=== PATIENT | male | born 1955 | race Caucasian/White ===

== ENCOUNTER → 2017-06-24 | Outpatient (CLI) | payer BC ==
[2017-06-24 12:30] LABS: BASO % 0.8 %; BASO ABS # 0.08 K/uL (0-0.2); HEMATOCRIT 45.3 % (42-52); HEMOGLOBIN 15.1 g/dL (14.0-18.0); IG# 0.03 K/uL (0.00-0.02); LYMPH % 27.1 %; LYMPH ABS # 2.67 K/uL (1.2-3.4); MEAN CELL VOLUME 93.4 fL (80-100); MEAN CORPUSCULAR HEMOGLOBIN 31.1 pg (25-34); MEAN CORPUSCULAR HGB CONC 33.3 g/dl (32-36); MEAN PLATELET VOLUME 10.1 fL (7.4-10.4); MONO % 11.4 %; MONO ABS # 1.12 K/uL (0.11-0.59); NEUT % 58.4 %; NEUT ABS # 5.76 K/uL (1.4-6.5); PLATELET COUNT 326 K/uL (130-400); RED CELL DISTRIBUTION WIDTH CV 13.4 % (11.5-14.5); RED CELL DISTRIBUTION WIDTH SD 46.2 fL (36.4-46.3); WHITE BLOOD COUNT 9.86 K/uL (4.8-10.8)
[2017-06-24 13:00] LABS: HEMOGLOBIN A1C 5.4 % (4.5-5.6)
[2017-06-24 13:25] LABS: ALBUMIN 3.7 gm/dl (3.4-5.0); ALT/SGPT 22 U/L (12-78); BLOOD UREA NITROGEN 10 mg/dl (7-18); CALCIUM 9.2 mg/dl (8.5-10.1); CARBON DIOXIDE 27 mmol/L (21-32); CHOLESTEROL 207 mg/dl (0-200); CREATININE 1.02 mg/dl (0.60-1.40); GLUCOSE 98 mg/dl (70-99); POTASSIUM 4.2 mmol/L (3.5-5.1); SODIUM 139 mmol/L (136-145)
[2017-06-24 13:27] LABS: ALKALINE PHOSPHATASE 85 U/L (45-117); AST/SGOT 15 U/L (15-37); LDL CHOLESTEROL CALCULATED 149 mg/dl
== END | disposition home or self-care (01) ==
LOC: C.LABPVFM 07:41
PROVIDERS: ATTEND Family Medicine
DX: F17.200 Nicotine dependence, unspecified, uncomplicated (principal); Z86.39 Personal history of other endocrine, nutritional and metabolic disease

== ENCOUNTER → 2017-12-12 | Outpatient (CLI) | payer BC ==
--- NOTE | 2017-12-12 10:28 | DIAGNOSTIC IMAGING REPORT ---
R FEMUR 2 VIEWS ROUTINE HISTORY: 62 years-old Male Leg pain, lateralRIGHT acute right femur pain COMPARISON: None available TECHNIQUE: 2 views of the right femur FINDINGS: Mild osteoarthritis about the right femoral acetabular joint. Degenerative changes are also noted about the knee. There is no acute fracture or dislocation identified. No suspicious bone lesions or avascular necrosis. Imaged right hemipelvis appears to be intact. Peripheral arterial calcifications are noted. IMPRESSION: No acute fracture or dislocation. The above report was generated using voice recognition software. It may contain grammatical, syntax or spelling errors. Electronically signed by: Sabino Magaña M.D. 12/12/2017 10:27 AM Dictated Date/Time: 12/12/2017 10:26 AM
== END | disposition home or self-care (01) ==
LOC: C.RADPV 10:05
PROVIDERS: ATTEND Family Medicine
DX: M79.604 Pain in right leg (principal)

== ENCOUNTER 2023-09-24 16:05 | Inpatient (IN) ==
[2023-09-24 16:37] LABS: Partial Thromboplastin Time 26 Seconds (21-31); Prothrombin Time 10.6 Seconds (9.0-12.0)
[2023-09-24 16:40] LABS: Basophils # (auto) 0.08 K/uL (0.00-0.20); Basophils % (auto) 0.7 %; Eosinophils # (auto) 0.13 K/uL (0.00-0.50); Eosinophils % (auto) 1.1 %; Hematocrit (blood only) 38.5 % (42.0-52.0); Hemoglobin 12.9 g/dl (14.0-18.0); Immature Granulocytes # (auto) 0.08 K/uL (0.01-0.20); Immature Granulocytes % (auto) 0.7 %; Lymphocytes # (auto) 2.57 K/uL (1.20-3.40); Lymphocytes % (auto) 22.2 %; Mean Corpuscular Hemoglobin 30.9 pg (25.0-34.0); Mean Corpuscular Hgb Conc 33.5 g/dL (32.0-36.0); Mean Corpuscular Volume 92.1 fL (80.0-100.0); Mean Platelet Volume 9.7 fL (9.4-12.4); Monocytes # (auto) 0.98 K/uL (0.11-0.59); Monocytes % (auto) 8.5 %; Neutrophils # (auto) 7.74 K/uL (1.40-6.50); Neutrophils % (auto) 66.8 %; Platelet Count 379 K/uL (130-400); RDW Coefficient of Variation 12.8 % (11.5-14.5); Red Blood Count 4.18 M/uL (4.70-6.10); White Blood Count 11.58 K/ul (4.8-10.8)
[2023-09-24 16:47] LABS: Albumin Globulin Ratio 1.4 (0.9-2); Bilirubin,Total 0.4 mg/dl (0.2-1.0); Calcium 9.5 mg/dl (8.6-10.3); Creatinine Clr Calc Pharmacy 87.3 ml/min; Est GFR (African American) 81.5 ml/min; Est GFR (Non-African American) 70.4 ml/min; Globulin 2.9 gm/dl (2.5-4.0); Potassium 3.4 mmol/L (3.5-5.1); Total Protein 6.9 gm/dl (6.0-8.3)
--- NOTE | 2023-09-24 16:58 | XRay Report ---
SINGLE VIEW CHEST CLINICAL HISTORY: Atypical chest pain. FINDINGS: An AP upright chest radiograph is compared to study dated 11/22/2018 and correlated with [facility] t [facility] dated 02/07/2019. The heart is enlarged. The pulmonary vasculature is noncongested. Emphysema and chronic interstitial thickening is similar to previous. There is bibasilar scarring/atelectasis. No airspace consolidation or large pleural effusion is identified. No pneumothorax is seen. The skeletal structures are osteopenic. The bony thorax is grossly intact. A benign-appearing chondroid lesion is seen in the left humeral head. IMPRESSION: Cardiomegaly and emphysema with no acute cardiopulmonary abnormality identified. ACT 112: Negative or not required by law. Electronically signed by: German Mooney M.D. 09/24/2023 4:56 PM
[2023-09-24 17:15] LABS: Troponin I High Sensitivity 3538.7 pg/ml (0-20)
[2023-09-24 17:17] LABS: D Dimer 1080 ug/L FEU (0-500)
[2023-09-24] MEDS: ONDANSETRON INJ 2 MG/ML 2 ML VIAL IV STA (17:39)
[2023-09-24] MEDS: HYDROmorphone INJ 0.5 MG/0.5 ML SYR IV PRN (17:39)
[2023-09-24] MEDS: OPTIRAY 320 125ml IV ONE (17:59)
--- NOTE | 2023-09-24 18:38 | CT Scan Report ---
CT ANGIOGRAM OF THE CHEST CLINICAL HISTORY: Atypical chest pain. Elevated d-dimer. Elevated troponin. COMPARISON STUDY: Chest x-ray dated 09/24/2023. Chest CT dated 02/07/2019. TECHNIQUE: Following the IV administration of 120 cc of Optiray 320, CT angiogram of the chest was pe rformed from the upper abdomen to the thoracic inlet utilizing the pulmonary embolus protocol. Images are reviewed in the axial, sagittal, and coronal planes. 3-D MIPS images are created and assessed. I V contrast was administered without complication. A dose lowering technique was utilized adhering to the principles of ALARA. CT DOSE: 880.15 mGy.cm FINDINGS: Thyroid: Imaged portions of the thyroid gland are normal in size and attenuation. Thoracic aorta: There is atherosclerotic calcification of the thoracic aorta, which is normal in see adam and demonstrates standard 3-vessel arch anatomy. No dissection is seen. There is moderate focal s tenosis of the left subclavian artery below the thoracic outlet seen on axial image #203. Pulmonary vasculature: The pulmonary trunk is normal in caliber. There are no filling defects identif ied in main, lobar, or segmental pulmonary branches to suggest pulmonary embolus. Heart: The heart is enlarged and without pericardial effusion. The coronary arteries are densely calc ified. Lungs and pleural spaces: Evaluation of the lung parenchyma is degraded by motion artifact. There is mild emphysematous change. There is no airspace consolidation or pleural effusion. There is dependent scarring/atelectasis. Scattered calcified granulomas are incidentally noted. Mediastinum: Subcentimeter mediastinal lymph nodes are not pathologically enlarged by size criteria. Mary Kate: Clear. Axillae: There is no axillary lymphadenopathy. Upper abdomen: Partially visualized upper abdominal viscera is within normal limits. Skeletal structures: No lytic or blastic bony lesions are seen. IMPRESSION: 1. There is no evidence of pulmonary embolus in the main, lobar, or segmental pulmonary arteries. 2. There is no airspace consolidation or pleural effusion. 3. Cardiomegaly and mild emphysema. 4. Advanced coronary artery atherosclerosis. 5. Additional findings as above. ACT 112: Negative or not required by law. Electronically signed by: German Mooney M.D. 09/24/2023 6:36 PM
[2023-09-24] MEDS: ASPIRIN CHEW 324 MG PO STA (18:55)
[2023-09-24] MEDS ORDERED: Heparin IV Adult Wt-Based Low-Dose w/ INITIAL Bolus Protocol IV STA (19:21)
[2023-09-24] MEDS: NITROGLYCERIN 2% OINTMENT 30GM TUBE EXT STA (19:36)
[2023-09-24] MEDS ORDERED: HEPARIN SOD (PORCINE) 1000 UNIT/ML IV ONE (19:37)
[2023-09-24] MEDS: HEPARIN SOD (PORCINE) 1000 UNIT/ML IV ONE (20:00)
[2023-09-24] MEDS: HEPARIN SODIUM/DEXTROSE 25,000 UNITS/500 ML BAG IV SCH (20:01)
--- NOTE | 2023-09-24 20:08 | History & Physical Report ---
Date of Service September 24, 2023 Assessment & Plan (1) Non-ST elevated myocardial infarction (non-STEMI): (2) Current smoker: (3) Hyperlipidemia: (4) Hypertension: Plan NSTEMI/hypertension- The patient will be admitted to telemetry for serial cardiac enzymes, serial EKG's, cardiac rhythm monitoring and a 2-D echocardiogram with Dopplers. D-dimer 1080 Troponin 3538.7, with follow-up 3108.0 Given aspirin 324 mg, and will continue 81 mg every morning Continue heparin drip with bolus begun in the ED per protocol Continue Nitropaste 1/2 inch to anterior chest wall every 6 hours Metoprolol succinate, changed from 25 mg every evening to 12.5 mg p.o. twice daily, with first dose tonight. Blood pressure is currently 112/74 with pulse of 75 Holding HCTZ and lisinopril for now, which were both already taken early in the morning today Consult cardiology Hyperlipidemia- Placed on high-dose atorvastatin 40 mg, first dose now Check a fasting lipid panel Hyperglycemia Glucose 147 on admission Check hemoglobin A1c Hypokalemia Normal saline plus KCl 20 mEq at 80 mL/h x 1 L Repeat laboratories in a.m. Tobacco use disorder- Reports he stopped smoking tobacco year ago, but continues to vape Advised vaping cessation as well History of Present Illness Chief Complaint: The patient presents to the emergency department with complaint of recurrence of precordial chest pain and shortness of breath after moving a heater Primary Care Provider: Phoebe Ramos MD The patient is a 68-year-old male with past medical history including previous tobacco use, current vaping, hyperlipidemia, hypertension, AAA and lumbar degenerative disc disease. He reports that he was playing golf in [place] 5 days ago, and initially developed chest discomfort precordially, that persisted into that evening, and then did not recur again until earlier today, when he was moving a heavy heater. In the emergency department symptoms have resolved after receiving aspirin and Nitropaste. He is being started on heparin drip after conversation with cardiology, and is being referred for admission to the hospitalist service. Allergies Allergy/AdvReac Type Severity Reaction Status Date / Time Penicillins Allergy Mild Hives Verified 09/14/23 08:17 Home Medications Medication Instructions Recorded Confirmed Type sildenafil 50 mg tablet See Rx Instructions PO DAILY PRN 04/19/23 05/04/24 Rx sexual activity #30 tabs hydrochlorothiazide 25 mg tablet 25 mg PO QAM #90 tabs 04/27/23 09/24/23 Rx lisinopril 40 mg tablet 40 mg PO QPM #30 tabs 08/24/23 09/24/23 Rx metoprolol succinate 25 mg 25 mg PO QPM 09/24/23 09/24/23 History tablet,extended release 24 hr Past Med/Surg History Medical History Melanoma in situ of back Hyperlipidemia Hypertension Surgical History Hx of tonsillectomy Family History Uncle Colorectal cancer Father Hypertension Denies family history of Ovarian cancer Prostate cancer Diabetes Myocardial infarction Breast cancer Social History (Updated 09/14/23 @ 08:21 by Jessica Murry LPN) Smoking Status: Former smoker Tobacco Type: Smokeless Tobacco (Dip or Chew) Age Started Using Tobacco: 17; Age Quit Using Tobacco: 66; Second Hand Exposure: No; Do You Dip or Chew Tobacco: Yes; Hx Alcohol Use: No Hx Substance Use: No Preferred Language: Beninese Communication Ability: Effective Hearing Ability: Hard of Hearing Hogshead Packer Required: No marital status: Current Living Situation: Spouse 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 How many Children do You have: 3 Feels Safe at Home: Yes Childhood Exposure to Second-Hand Smoke: No Diet: regular caffeine: Yes (coffee) Dental Care, Regularly: Yes Physical Activity Frequency: Daily Seatbelt Use: never Sunscreen Use: No Review of Systems Review of Systems: The patient denies palpitations, cough, lower extremity swelling, sore throat, fevers, chills, sweats, weight change, fatigue, nausea, vomiting, diarrhea , constipation, abdominal pain, pelvic pain, blood in urine or stool, dysuria, urinary frequency or urgency, lightheadedness, dizziness, headache, memory loss, loss of consciousness, rash, abnormal bruising or bleeding, imbalance, focal or generalized weakness, numbness or tingling in arms or legs, generalized arthralgias or myalgias, back or neck pain, or night sweats. The review of systems is otherwise negative other than for that already noted above, and at least 10 systems have been reviewed. Physical Exam Physical Exam: The patient is awake, alert and oriented 3, well developed and well nourished, normocephalic and atraumatic, lying in bed and in no acute distress. HEENT--PERRL, EOMI, mucous membranes and oropharynx normal Neck--supple. No JVD. No bruits. Thyroid normal, trachea midline, no adenopathy. Heart--normal S1 and S2. No murmurs, rubs or gallops. Lungs--clear bilaterally, no respiratory distress, no accessory muscle use. Abdomen--normal bowel sounds and soft. Nontender. Nondistended, no hernias or masses, no organomegaly. Extremities-- No edema. Dermatologic--normal skin turgor, normal color, no abnormal lymph nodes, no rash. Neurologic--cranial nerves II through XII grossly intact. Rheumatologic--normal range of motion. Psychiatric--normal affect. Results & Data Results & Data Vital Signs (Past 12 Hours) Vital Signs Temp Pulse Resp BP Pulse Ox O2 Del Method 09/24/23 19:30 71 18 112/74 96 Room Air 09/24/23 19:00 75 18 118/70 95 09/24/23 17:30 72 18 131/83 99 09/24/23 17:05 72 09/24/23 17:00 72 19 131/83 98 09/24/23 16:07 36.8 C 73 24 145/91 H 97 Room Air Laboratory Results Laboratory Results WBC 11.58 K/ul (4.8-10.8) H 09/24/23 16:11 RBC 4.18 M/uL (4.70-6.10) L 09/24/23 16:11 Hgb 12.9 g/dl (14.0-18.0) L 09/24/23 16:11 Hct 38.5 % (42.0-52.0) L 09/24/23 16:11 MCV 92.1 fL (80.0-100.0) 09/24/23 16:11 MCH 30.9 pg (25.0-34.0) 09/24/23 16:11 MCHC 33.5 g/dL (32.0-36.0) 09/24/23 16:11 RDW Std Deviation 43.0 fL (36.4-46.3) 09/24/23 16:11 RDW Coeff of Genesis 12.8 % (11.5-14.5) 09/24/23 16:11 Plt Count 379 K/uL (130-400) 09/24/23 16:11 MPV 9.7 fL (9.4-12.4) 09/24/23 16:11 Immature Gran % (Auto) 0.7 % 09/24/23 16:11 Neut % (Auto) 66.8 % 09/24/23 16:11 Lymph % (Auto) 22.2 % 09/24/23 16:11 Lasalle % (Auto) 8.5 % 09/24/23 16:11 Eos % (Auto) 1.1 % 09/24/23 16:11 Baso % (Auto) 0.7 % 09/24/23 16:11 Neut # (Auto) 7.74 K/uL (1.40-6.50) H 09/24/23 16:11 Lymph # (Auto) 2.57 K/uL (1.20-3.40) 09/24/23 16:11 Lasalle # (Auto) 0.98 K/uL (0.11-0.59) H 09/24/23 16:11 Eos # (Auto) 0.13 K/uL (0.00-0.50) 09/24/23 16:11 Baso # (Auto) 0.08 K/uL (0.00-0.20) 09/24/23 16:11 Immature Gran # (Auto) 0.08 K/uL (0.01-0.20) 09/24/23 16:11 PT 10.6 Seconds (9.0-12.0) 09/24/23 16:11 INR 1.0 (0.9-1.1) 09/24/23 16:11 APTT 26 Seconds (21-31) 09/24/23 16:11 PTT Ratio 1.0 09/24/23 16:11 D-Dimer 1080 ug/L FEU (0-500) H* 09/24/23 16:11 Sodium 136 mmol/L (136-145) 09/24/23 16:11 Potassium 3.4 mmol/L (3.5-5.1) L 09/24/23 16:11 Chloride 100 mmol/L (98-107) 09/24/23 16:11 Carbon Dioxide 25 mmol/L (21-32) 09/24/23 16:11 Anion Gap 11 (3-11) 09/24/23 16:11 BUN 12 mg/dl (6-23) 09/24/23 16:11 Creatinine 1.09 mg/dl (0.6-1.4) 09/24/23 16:11 Est Cr Clr Drug Dosing 87.3 ml/min 09/24/23 16:11 Est GFR ( Amer) 81.5 ml/min 09/24/23 16:11 Est GFR (Non-Af Amer) 70.4 ml/min 09/24/23 16:11 BUN/Creatinine Ratio 11.0 (10-20) 09/24/23 16:11 Glucose 147 mg/dl (70-99(Fasting)) H 09/24/23 16:11 Calcium 9.5 mg/dl (8.6-10.3) 09/24/23 16:11 Total Bilirubin 0.4 mg/dl (0.2-1.0) 09/24/23 16:11 AST 24 U/L (13-39) 09/24/23 16:11 ALT 25 U/L (7-52) 09/24/23 16:11 Alkaline Phosphatase 81 U/L (34-104) 09/24/23 16:11 Troponin I High Sens 3108.0 pg/ml (0-20) H* 09/24/23 18:05 Total Protein 6.9 gm/dl (6.0-8.3) 09/24/23 16:11 Albumin 4.0 gm/dl (3.4-5.0) 09/24/23 16:11 Globulin 2.9 gm/dl (2.5-4.0) 09/24/23 16:11 Albumin/Globulin Ratio 1.4 (0.9-2) 09/24/23 16:11 Impressions Chest X-Ray 09/24/23 16:10 SINGLE VIEW CHEST CLINICAL HISTORY: Atypical chest pain. FINDINGS: An AP upright chest radiograph is compared to study dated 11/22/2018 and correlated with chest CT dated 02/07/2019. The heart is enlarged. The pulmonary vasculature is noncongested. Emphysema and chronic interstitial thickening is similar to previous. There is bibasilar scarring/atelectasis. No airspace consolidation or large pleural effusion is identified. No pneumothorax is seen. The skeletal structures are osteopenic. The bony thorax is grossly intact. A b enign-appearing chondroid lesion is seen in the left humeral head. IMPRESSION: Cardiomegaly and emphysema with no acute cardiopulmonary abnormality identified. ACT 112: Negative or not required by law. Electronically signed by: German Mooney M.D. 09/24/2023 4:56 PM Chest CTA 09/24/23 17:31 CT ANGIOGRAM OF THE CHEST CLINICAL HISTORY: Atypical chest pain. Elevated d-dimer. Elevated troponin. COMPARISON STUDY: Chest x-ray dated 09/24/2023. Chest CT dated 02/07/2019. TECHNIQUE: Following the IV administration of 120 cc of Optiray 320, CT angiogram of the chest was performed from the upper abdomen to the thoracic inlet utilizing the pulmonary embolus protocol. Images are reviewed in the axial, sagittal, and coronal planes. 3-D MIPS images are created and assessed. IV contrast was administered without complication. A dose lowering technique was utilized adhering to the principles of ALARA. CT DOSE: 880.15 mGy.cm FINDINGS: Thyroid: Imaged portions of the thyroid gland are normal in size and attenuation. Thoracic aorta: There is atherosclerotic calcification of the thoracic aorta, which is normal in caliber and demonstrates standard 3-vessel arch anatomy. No dissection is seen. There is moderate focal stenosis of the left subclavian artery below the thoracic outlet seen on axial image #203. Pulmonary vasculature: The pulmonary trunk is normal in caliber. There are no filling defects identified in main, lobar, or segmental pulmonary branches to suggest pulmonary embolus. Heart: The heart is enlarged and without pericardial effusion. The coronary arteries are densely calcified. Lungs and pleural spaces: Evaluation of the lung parenchyma is degraded by motion artifact. There is mild emphysematous change. There is no airspace consolidation or pleural effusion. There is dependent scarring/atelectasis. Scattered calcified granulomas are incidentally noted. Mediastinum: Subcentimeter mediastinal lymph nodes are not pathologically enlarged by size criteria. Mary Kate: Clear. Axillae: There is no axillary lymphadenopathy. Upper abdomen: Partially visualized upper abdominal viscera is within normal limits. Skeletal structures: No lytic or blastic bony lesions are seen. IMPRESSION: 1. There is no evidence of pulmonary embolus in the main, lobar, or segmental pulmonary arteries. 2. There is no airspace consolidation or pleural effusion. 3. Cardiomegaly and mild emphysema. 4. Advanced coronary artery atherosclerosis. 5. Additional findings as above. ACT 112: Negative or not required by law. Electronically signed by: German Mooney M.D. 09/24/2023 6:36 PM Code Status & VTE Plan Code Status Full code VTE Prophylaxis Plan VTE Prophylaxis will be ordered: Yes PG Care Time/CCT Total # of Minutes Spent Total Time Spent with Patient: Total time spent is greater than 50% in coordination of care (as documented) at patient's floor/unit and/or counseling patient: Coding Level of Care Code 42592 INT INP/OBS CARE 3/75MIN Diagnoses Non-ST elevated myocardial infarction (non-STEMI) I21.4 Current smoker F17.200 Mixed hyperlipidemia E78.2 Hyperlipidemia type: mixed hyperlipidemia Primary hypertension I10 Hypertension type: primary hypertension (3) Hyperlipidemia Hyperlipidemia type: mixed hyperlipidemia Qualified Code(s): E78.2 - Mixed hyperlipidemia (4) Hypertension Hypertension type: primary hypertension Qualified Code(s): I10 - Essential (primary) hypertension
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
[2023-09-24] MEDS: ATORVASTATIN 40 MG TAB PO STA (20:47)
[2023-09-24] MEDS ORDERED: ONDANSETRON INJ 2 MG/ML 2 ML VIAL IV PRN (22:12)
[2023-09-24] MEDS: NSS + 20MEQ KCL 20 MEQ/1,000 ML BAG IV SCH (22:57)
[2023-09-25] MEDS: METOPROLOL SUCC 25MG EXT REL TAB PO SCH (00:02)
[2023-09-25] MEDS: NITROGLYCERIN 2% OINTMENT 30GM TUBE EXT SCH (01:47)
[2023-09-25] MEDS: ACETAMINOPHEN 325 MG TAB PO PRN (01:49)
[2023-09-25 02:10] LABS: Basophils # (auto) 0.06 K/uL (0.00-0.20); Basophils % (auto) 0.5 %; Eosinophils # (auto) 0.15 K/uL (0.00-0.50); Eosinophils % (auto) 1.3 %; Hematocrit (blood only) 35.3 % (42.0-52.0); Hemoglobin 11.9 g/dl (14.0-18.0); Immature Granulocytes # (auto) 0.06 K/uL (0.01-0.20); Immature Granulocytes % (auto) 0.5 %; Lymphocytes # (auto) 2.89 K/uL (1.20-3.40); Lymphocytes % (auto) 25.1 %; Mean Corpuscular Hemoglobin 31.4 pg (25.0-34.0); Mean Corpuscular Hgb Conc 33.7 g/dL (32.0-36.0); Mean Corpuscular Volume 93.1 fL (80.0-100.0); Mean Platelet Volume 9.7 fL (9.4-12.4); Monocytes # (auto) 1.51 K/uL (0.11-0.59); Monocytes % (auto) 13.1 %; Neutrophils # (auto) 6.83 K/uL (1.40-6.50); Neutrophils % (auto) 59.5 %; Platelet Count 315 K/uL (130-400); RDW Coefficient of Variation 12.7 % (11.5-14.5); RDW Standard Deviation 43.8 fL (36.4-46.3); Red Blood Count 3.79 M/uL (4.70-6.10)
[2023-09-25 02:19] LABS: ANTI-Xa, UFH(UnfractionatedHep 0.15 IU/ml (0.3-0.7)
[2023-09-25 02:30] LABS: Chol HDL Ratio 5.7 (0-5); Magnesium 1.8 mg/dl (1.7-2.4)
[2023-09-25 02:38] LABS: Troponin I High Sensitivity 2828.2 pg/ml (0-20)
[2023-09-25] MEDS: HEPARIN SOD (PORCINE) 1000 UNIT/ML IV ONE (03:55)
[2023-09-25 07:14] LABS: Estimated Average Glucose 114 mg/dl; Hemoglobin A1C 5.6 % (4.5-5.6)
--- NOTE | 2023-09-25 08:43 | Cardiology Consultation ---
Date of Consultation September 25, 2023 Assessment & Plan (1) Non-ST elevated myocardial infarction (non-STEMI): (2) Hypertension: (3) Hyperlipidemia: Plan 1. NSTEMI: His symptoms are worrisome although not classic for angina, however with the symptoms and the positive cardiac enzymes and borderline abnormality in his electrocardiogram it is most likely that he has significant coronary artery disease. I think we need to investigate, I have recommended a cardiac catheterization and he is agreeable. I discussed this with him with his family present. I will plan on having this done tomorrow. 2. Hypertension: His blood pressure is reasonably well-controlled with a few outliers on hydrochlorothiazide, lisinopril and metoprolol succinate. At the moment I would not change his medications. 3. Hyperlipidemia: His cholesterol is not bad considering he is not treated, however he does not seem to be on anything for cholesterol and but should be on a statin with his known aortic atherosclerosis whether or not he has coronary artery disease. History of Present Illness Reason for Consultation: Chest pain, elevated troponin Attending Physician: Camacho Espana History of Present Illness This is a 68-year-old male with a history of hyperlipidemia, hypertension and an aortic aneurysm (followed by Dr. Tsang). He is a prior smoker, having quit tobacco a year ago. He presents the emergency room describing precordial chest discomfort occurring 1 week ago while playing golf in [place], that started almost 24 hours after golf and resolved within 48 hours but then recurred on September 24, 2023 when he was doing some heavy work. He was still having symptoms in the emergency room however they resolved after aspirin and Nitropaste and he has had no recurrence. That episode lasted 3 or 4 hours. He was started on a heparin drip. Initial evaluation in the emergency room included high-sensitivity troponin measurements with the initial measurement being 3538, the second 2 hours later being 3108 and the most recent done about 10 hours after presentation was 2828. His electrocardiogram on presentation showed sinus rhythm at 71 bpm and was normal with what appears to be slight inferior ST elevation. Another electrocardiogram the this morning (14 hours later) appears to show some inferior ST elevation. There is a comparison from 2019 which appears normal. His chest x-ray suggests cardiomegaly. An echocardiogram is pending. His blood pressure was somewhat elevated when he presented however for the most part has been normal. His cholesterol is not bad with a total of 143 this morning, and an HDL of 25. His non-HDL cholesterol is therefore 144 which is elevated. His His home medications include metoprolol succinate, lisinopril and hydrochlorothiazide. Allergies Allergy/AdvReac Type Severity Reaction Status Date / Time Penicillins Allergy Mild Hives Verified 09/14/23 08:17 Home Medications Medication Instructions Recorded Confirmed Type sildenafil 50 mg tablet See Rx Instructions PO DAILY PRN 09/08/22 09/24/23 Rx sexual activity #30 tabs hydrochlorothiazide 25 mg tablet 25 mg PO QAM #90 tabs 04/27/23 09/24/23 Rx lisinopril 40 mg tablet 40 mg PO QPM #30 tabs 08/24/23 09/24/23 Rx metoprolol succinate 25 mg 25 mg PO QPM 09/24/23 09/24/23 History tablet,extended release 24 hr Patient History Medical History Melanoma in situ of back Hyperlipidemia Hypertension Surgical History Hx of tonsillectomy Family History Uncle Colorectal cancer Father Hypertension Denies family history of Ovarian cancer Prostate cancer Diabetes Myocardial infarction Breast cancer Social History Smoking Status: Former smoker Tobacco Type: Smokeless Tobacco (Dip or Chew) Age Started Using Tobacco: 17; Age Quit Using Tobacco: 66; Smoking End Date: 1 year; Second Hand Exposure: No; Do You Dip or Chew Tobacco: Yes; Tobacco Cessation Education Requested by Patient: No Hx Alcohol Use: Yes Alcohol type: beer Hx Substance Use: No Preferred Language: Macedonian Communication Ability: Effective Hearing Ability: Hard of Hearing Underwear Cutter Required: No Beliefs That Will Affect Care: None marital status: Current Living Situation: Spouse 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 occupational status: 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 HEENT: Unremarkable Neck: No jugular venous distention, carotid pulses are normal and equal bilaterally without bruits. Pulmonary: Clear to auscultation bilaterally. Cardiac: Regular rhythm with no murmur, gallop or rub. Abdomen: Soft, nontender with normal bowel sounds. Extremities: No edema. Distal pulses intact. Neurologic: No focal findings. Gait is steady. Skin: No rash, ecchymoses or petechiae. Results & Data Vital Signs (Past 12 Hours) Vital Signs Temp Pulse Pulse Resp BP BP BP 09/25/23 07:25 36.9 C 65 16 109/67 09/25/23 01:57 36.7 C 74 16 99/62 L 09/24/23 22:20 77 09/24/23 22:12 36.4 C L 83 18 126/72 09/24/23 22:12 36.4 C L 83 19 126/72 09/24/23 22:00 36.4 C L 83 19 126/72 09/24/23 21:46 74 18 124/77 09/24/23 21:18 75 09/24/23 21:00 76 16 113/68 Pulse Ox O2 Del Method 09/25/23 07:25 96 Room Air 09/25/23 01:57 96 Room Air 09/24/23 22:20 09/24/23 22:12 96 Room Air 09/24/23 22:12 96 Room Air 09/24/23 22:00 96 Room Air 09/24/23 21:46 99 Room Air 09/24/23 21:18 09/24/23 21:00 99 Room Air Laboratory Results Cardiac Enzymes 09/24/23 09/24/23 09/25/23 Range/Units 16:11 18:05 01:49 AST 24 (13-39) U/L Troponin I High Sens 3538.7 H* 3108.0 H* 2828.2 H* (0-20) pg/ml Coagulation 09/24/23 Range/Units 16:11 PT 10.6 (9.0-12.0) Seconds APTT 26 (21-31) Seconds Lipids 09/25/23 Range/Units 01:49 Triglycerides 169 H (0-150) mg/dl Cholesterol 143 (0-200) mg/dl HDL Cholesterol 25 mg/dl Cholesterol/HDL Ratio 5.7 H (0-5) CBC 09/24/23 09/25/23 Range/Units 16:11 01:49 WBC 11.58 H 11.50 H (4.8-10.8) K/ul RBC 4.18 L 3.79 L (4.70-6.10) M/uL Hgb 12.9 L 11.9 L (14.0-18.0) g/dl Hct 38.5 L 35.3 L (42.0-52.0) % Plt Count 379 315 (130-400) K/uL Neut # (Auto) 7.74 H 6.83 H (1.40-6.50) K/uL Lymph # (Auto) 2.57 2.89 (1.20-3.40) K/uL Amelia # (Auto) 0.98 H 1.51 H (0.11-0.59) K/uL Eos # (Auto) 0.13 0.15 (0.00-0.50) K/uL Baso # (Auto) 0.08 0.06 (0.00-0.20) K/uL Comprehensive Metabolic Panel 09/24/23 Range/Units 16:11 Sodium 136 (136-145) mmol/L Potassium 3.4 L (3.5-5.1) mmol/L Chloride 100 (98-107) mmol/L Carbon Dioxide 25 (21-32) mmol/L BUN 12 (6-23) mg/dl Creatinine 1.09 (0.6-1.4) mg/dl Glucose 147 H (70-99(Fasting)) mg/dl Calcium 9.5 (8.6-10.3) mg/dl AST 24 (13-39) U/L ALT 25 (7-52) U/L Alkaline Phosphatase 81 (34-104) U/L Total Protein 6.9 (6.0-8.3) gm/dl Albumin 4.0 (3.4-5.0) gm/dl Intake and Output 09/24/23 09/25/23 09/25/23 22:59 06:59 14:59 Intake Total 234.133 / 234.133 Balance 234.133 / 234.133 Intake: IV 234.133 / 234.133 Heparin Sodium/Dextrose 25,000 234.133 / 234.133 units In 500 ml @ 1,200 UNITS/ HR 24 mls/hr IV .[id number] LAN Rx #:[id number] Other: # Unmeasured Voids 1 Weight 102.1 kg 102.1 kg Weight Measurement Method Standing Scale Standing Scale Diagnostic Findings Telemetry: Sinus rhythm in the 70s PG Care Time/CCT Total # of Minutes Spent Total Time Spent with Patient: Total time spent is greater than 50% in coordination of care (as documented) at patient's floor/unit and/or counseling patient: Coding Level of Care Code 27682 INT INP/OBS CARE 3/75MIN Diagnoses Non-ST elevated myocardial infarction (non-STEMI) I21.4 Primary hypertension I10 Hypertension type: primary hypertension Mixed hyperlipidemia E78.2 Hyperlipidemia type: mixed hyperlipidemia (2) Hypertension Hypertension type: primary hypertension Qualified Code(s): I10 - Essential (primary) hypertension (3) Hyperlipidemia Hyperlipidemia type: mixed hyperlipidemia Qualified Code(s): E78.2 - Mixed hyperlipidemia
[2023-09-25 09:07] LABS: ANTI-Xa, UFH(UnfractionatedHep 0.31 IU/ml (0.3-0.7)
[2023-09-25] MEDS: ASPIRIN 81 MG ECTAB PO SCH (09:32)
[2023-09-25] MEDS: ATORVASTATIN 40 MG TAB PO SCH (09:32)
--- NOTE | 2023-09-25 14:10 | XCELERA ---
[id number]
--- NOTE | 2023-09-25 22:25 | Hospitalist Progress Note ---
Date of Service September 25, 2023 Assessment & Plan (1) Non-ST elevated myocardial infarction (non-STEMI): (2) Current smoker: (3) Hyperlipidemia: (4) Hypertension: Plan NSTEMI/hypertension- The patient will be admitted to telemetry for serial cardiac enzymes, serial EKG's, cardiac rhythm monitoring and a 2-D echocardiogram with Dopplers. D-dimer 1080 Troponin 3538.7, with follow-up 3108.0 Given aspirin 324 mg, and will continue 81 mg every morning Continue heparin drip with bolus begun in the ED per protocol Continue Nitropaste 1/2 inch to anterior chest wall every 6 hours Metoprolol succinate, changed from 25 mg every evening to 12.5 mg p.o. twice daily, with first dose tonight. Blood pressure is currently 112/74 with pulse of 75 Holding HCTZ and lisinopril for now, which were both already taken early in the morning today Consult cardiology On 09/24 Patient remains on heparin drip. Appreciate cards input. WIll have cardiac cath tomorrow. Echocardiogram findings reviewed. Hyperlipidemia- Placed on high-dose atorvastatin 40 mg, Hyperglycemia Glucose 147 on admission Hypokalemia Normal saline plus KCl 20 mEq at 80 mL/h x 1 L replaced. Tobacco use disorder- Reports he stopped smoking tobacco year ago, but continues to vape Advised vaping cessation as well Admission and Anticipated Discharge Date Admission Date: September 24, 2023 Subjective Patient reports feeling well. Review of Systems Review of Systems: All systems reviewed & are unremarkable except as noted in HPI & below Physical Exam Constitutional: WD/WN, vitals as above Neck: trachea midline, no thyromegaly Respiratory: normal respiratory effort, lungs clear to auscultation Cardiovascular: RRR, no murmur, no edema Extremities: normal capillary refill Results & Data Results & Data Vital Signs (Past 12 Hours) Vital Signs Temp Pulse Resp BP Pulse Ox O2 Del Method 09/25/23 19:00 36.3 C L 76 16 108/65 95 Room Air 09/25/23 16:05 37.0 C 71 18 113/67 96 Room Air 09/25/23 11:55 36.7 C 70 17 110/63 96 Room Air PG Care Time/CCT Total # of Minutes Spent Total Time Spent with Patient: Total time spent is greater than 50% in coordination of care (as documented) at patient's floor/unit and/or counseling patient: Coding Level of Care Code 33868 SUB INP/OBS CARE MIN Diagnoses Non-ST elevated myocardial infarction (non-STEMI) I21.4 Current smoker F17.200 Mixed hyperlipidemia E78.2 Hyperlipidemia type: mixed hyperlipidemia Primary hypertension I10 Hypertension type: primary hypertension (3) Hyperlipidemia Hyperlipidemia type: mixed hyperlipidemia Qualified Code(s): E78.2 - Mixed hyperlipidemia (4) Hypertension Hypertension type: primary hypertension Qualified Code(s): I10 - Essential (primary) hypertension
--- NOTE | 2023-09-25 22:39 | Electrocardiogram Report ---
Test Reason : Blood Pressure : / mmHG Vent. Rate : 071 BPM Atrial Rate : 071 BPM P-R Int : 156 ms QRS Dur : 080 ms QT Int : 388 ms P-R-T Axes : 026 -05 028 degrees QTc Int : 421 ms Normal sinus rhythm Normal ECG When compared with ECG of 22-NOV-2018 19:34, T wave amplitude has decreased in Lateral leads Confirmed by Axel Borden ([id number]) on 09/25/2023 10:39:11 PM Referred By: REFERRED SELF Confirmed By:Axel Borden
--- NOTE | 2023-09-25 22:58 | Electrocardiogram Report ---
Test Reason : Blood Pressure : / mmHG Vent. Rate : 069 BPM Atrial Rate : 069 BPM P-R Int : 154 ms QRS Dur : 084 ms QT Int : 400 ms P-R-T Axes : 043 -23 026 degrees QTc Int : 428 ms Normal sinus rhythm Nonspecific ST abnormality Borderline ECG When compared with ECG of 24-SEP-2023 16:11, (unconfirmed) No significant change was found Confirmed by Axel Borden ([id number]) on 09/25/2023 10:57:30 PM Referred By: REFERRED SELF Confirmed By:Axel Borden
[2023-09-25] MEDS: SODIUM CHLORIDE 0.9% 1,000 ML IV SCH (23:56)
[2023-09-26 08:03] LABS: Basophils # (auto) 0.05 K/uL (0.00-0.20); Basophils % (auto) 0.6 %; Eosinophils # (auto) 0.11 K/uL (0.00-0.50); Eosinophils % (auto) 1.4 %; Hemoglobin 10.9 g/dl (14.0-18.0); Immature Granulocytes # (auto) 0.04 K/uL (0.01-0.20); Immature Granulocytes % (auto) 0.5 %; Lymphocytes # (auto) 1.91 K/uL (1.20-3.40); Lymphocytes % (auto) 23.7 %; Mean Corpuscular Hemoglobin 31.6 pg (25.0-34.0); Mean Corpuscular Hgb Conc 34.1 g/dL (32.0-36.0); Mean Corpuscular Volume 92.8 fL (80.0-100.0); Mean Platelet Volume 9.8 fL (9.4-12.4); Monocytes # (auto) 0.98 K/uL (0.11-0.59); Monocytes % (auto) 12.1 %; Neutrophils # (auto) 4.98 K/uL (1.40-6.50); Neutrophils % (auto) 61.7 %; Platelet Count 300 K/uL (130-400); RDW Coefficient of Variation 12.7 % (11.5-14.5); RDW Standard Deviation 43.6 fL (36.4-46.3); Red Blood Count 3.45 M/uL (4.70-6.10); White Blood Count 8.07 K/ul (4.8-10.8)
[2023-09-26 08:07] LABS: ANTI-Xa, UFH(UnfractionatedHep 0.19 IU/ml (0.3-0.7)
[2023-09-26 08:17] LABS: BUN Creatinine Ratio 11.5 (10-20); Calcium 8.2 mg/dl (8.6-10.3); Est GFR (African American) 104.2 ml/min; Est GFR (Non-African American) 89.9 ml/min; Magnesium 1.9 mg/dl (1.7-2.4); Potassium 3.9 mmol/L (3.5-5.1)
[2023-09-26] MEDS ORDERED: RAPID SEQUENCE INDUCTION BAG ONE (09:19)
--- NOTE | 2023-09-26 10:20 | Death Pronouncement Note ---
Date of Service September 26, 2023 Pronouncement Note Admission Date September 24, 2023 Date and Time of Date of : 09/26/23 Time of : 10:03 Preliminary Cause of (1) Cardiac arrest: (2) Cardiogenic shock: Summary Pt with evidence of past recent [place] with downtrending troponins on admit. Pt became unresponsive at 0918hrs, CODE BLUE called. PEA on arrival. Pulse return at 0928 with wide complex, ?STEMI on rhythm strip. heart alert called. Pt again became pulseless, CPR initiated. Epi given ~Q3M, epi gtt started at 0933hrs. Bedisde US by cardiology showed pericardial effusion which was drained for sanginous material, although did not appear consistent with either free wall rupture or tamponade at bedside echo. ?Arrest with mechanical obstruction/shock. Of note patient had had previously downtrending troponins reactive old [place] pre[facility], and echo was with normal wall motion day prior. Code was continued until 1003, pt remained pulseless and apneic. At 1003 pulseless, apneic, and with no corneal reflex, pupils fixed and dilated. Pt pronounced at 1003hrs. Additional Data Attending physician: Camacho Espana Coding Level of Care Code 39812 INP/OBS DISCH >30 MIN Diagnoses Cardiac arrest I46.9 Cardiogenic shock R57.0
--- NOTE | 2023-09-26 10:22 | Discharge Summary ---
Date of Service September 26, 2023 Admission HPI Per Admitting Provider The patient is a 68-year-old male with past medical history including previous tobacco use, current vaping, hyperlipidemia, hypertension, AAA and lumbar degenerative disc disease. He reports that he was playing golf in [place] 5 days ago, and initially developed chest discomfort precordially, that persisted into that evening, and then did not recur again until earlier today, when he was moving a heavy heater. In the emergency department symptoms have resolved after receiving aspirin and Nitropaste. He is being started on heparin drip after conversation with cardiology, and is being referred for admission to the hospitalist service. Principal Diagnosis NSTEMI Discharge Exam Please refer to note Discharge Data Allergies Allergy/AdvReac Type Severity Reaction Status Date / Time Penicillins Allergy Mild Hives Verified 09/14/23 08:17 Consultations 09/24/23 19:25 ED Decision to Admit Stat 09/24/23 22:12 Consult Cardiology Routine Procedures Performed Operation Date: 09/26/23 09:30 <No data on this case meets the specified criteria> Ordered Studies 09/24/23 17:31 CT angio chest PE protocol Stat 09/26/23 06:42 CL Cath Imgs for PACS use only Routine 09/26/23 06:52 CL Cath Imgs for PACS use only Routine Hospital Course (1) Non-ST elevated myocardial infarction (non-STEMI): (2) Current smoker: (3) Hyperlipidemia: (4) Hypertension: (5) Cardiac arrest: (6) STEMI (ST elevation myocardial infarction): Plan NSTEMI/hypertension- The patient will be admitted to telemetry for serial cardiac enzymes, serial EKG's, cardiac rhythm monitoring and a 2-D echocardiogram with Dopplers. D-dimer 1080 Troponin 3538.7, with follow-up 3108.0 Given aspirin 324 mg, and will continue 81 mg every morning Continue heparin drip with bolus begun in the ED per protocol Continue Nitropaste 1/2 inch to anterior chest wall every 6 hours Metoprolol succinate, changed from 25 mg every evening to 12.5 mg p.o. twice daily, with first dose tonight. Blood pressure is currently 112/74 with pulse of 75 Holding HCTZ and lisinopril for now, which were both already taken early in the morning today Consult cardiology. On 09/24 Patient remains on heparin drip. Appreciate cards input. WIll have cardiac cath tomorrow. Echocardiogram findings reviewed. On 09/25 Patient had a code blue in AM of 09/25 CPR performed by Code Team. Return of spontaneous circulation obtained, Heart alert called. Patient shortly thereafter went back to a PEA. Bedside US by Dr. Meza showed pericardial effusion. 60-70 ml of serosanguineous fluid removed. Patient passed at 10:03, Discussed with Casing Runner, given downtrending troponin and normal Echocardiogram on 09/24 on heparin drip. Unsure of exact cause of . Perhaps patient developed Mitral valve injury from papillary muscle rupture which can occur 2 days post Myocardial infarction. informed of passing. Autopsy was offered to the family. Patient's informed team that she would not want an autopsy completed. Please refer to note for further details. Hyperlipidemia- Placed on high-dose atorvastatin 40 mg, Hyperglycemia Glucose 147 on admission Hypokalemia Normal saline plus KCl 20 mEq at 80 mL/h x 1 L replaced. Tobacco use disorder- Reports he stopped smoking tobacco year ago, but continues to vape Advised vaping cessation as well Total Time Total Time Spent Total Time Spent (In Minutes): 70 Discharge Plan Discharge Items Patient Disposition: Other Date/Time: 09/26/23 10:03 Coding Level of Care Code None Diagnoses Non-ST elevated myocardial infarction (non-STEMI) I21.4 Current smoker F17.200 Mixed hyperlipidemia E78.2 Hyperlipidemia type: mixed hyperlipidemia Primary hypertension I10 Hypertension type: primary hypertension Cardiac arrest I46.9 STEMI (ST elevation myocardial infarction) I21.3 Comment Billed on note.
--- NOTE | 2023-09-26 11:57 | Procedure Note ---
Procedure Note Date of Service September 26, 2023 Note INTUBATION PROCEDURE NOTE: Provider: Donato Collins MD A time-out was completed verifying correct patient, procedure, site, positioning. Patient was evaluated and required intubation for cardiac and respiratory arrest. Sedative agent used: None Paralysis agent used: Etomidate 40 mg Emergent consent was implied given patients rapidly declining clinical status and need for airway protection. I responded to a CODE BLUE in the room. The patient was actively undergoing CPR and [id number] ventilation by respiratory therapy. Dr. Chadwick was managing the code. I assisted respiratory therapy with ventilation. Patient initially had some response then lost pulses and decision was made to proceed with intubation. CPR was briefly held and an initial attempt with glide scope portable scope was conducted. I was unable to visualize the cords. We resumed [id number] ventilation and CPR and at that point in time requested glide scope. With a stiff stylette and CPR being temporarily held I was able to visualize the cords and we were able to pass a 7.5 endotracheal tube through the cords. Balloon was inflated. With resumption of CPR, colorimetric change was appreciated. Bilateral breath sounds were heard without air sounds in the abdomen. The patient continued active resuscitation throughout this process and failed to regain a pulse. Please refer to additional CPR notes and summary. Coding CPT Codes Resuscitation - Resuscitation: 22496 Endotracheal Intubation, emergency ([id number]) [facility] [place]odes [place]arges) Resuscitation Resuscitation: 80604 Endotracheal Intubation, emergency
--- NOTE | 2023-09-26 12:04 | Procedure Note ---
Procedure Note Date of Service September 26, 2023 Note Procedure: Cardiopulmonary resuscitation Indication PEA/bradycardia arrest Procedure: Arrived to the room to find the patient undergoing CPR. He been admitted with non-ST elevation myocardial infarction with plans to proceed to the Studio Coordinator later today. He has a known ascending aortic aneurysm measuring 3.1 cm at last visit. The patient apparently did not have any arrhythmias on telemetry but did suffer PEA arrest. Pulses were palpable with CPR. Dr. Chadwick was initially managing the code. I directed myself to the head of the bed to assist with management of the airway. Shortly thereafter I assumed control of the code. ACLS protocols were administered for PEA arrest including multiple pushes of epinephrine and atropine with effective CPR. Eventually we were able to get end-tidal CO2 which hovered between 10 and 15 with CPR. Patient did transition at 1 point in time to a wide-complex tachycardia with heart rates in the 150s. 300 mg of amiodarone push were administered. We were unable to get a pulse back. Dr. Meza presented at bedside. Several echocardiograms were performed during the course of CPR which revealed potential circumferential pericardial effusion but no evidence of intraventricular collapse. There was minimal wall motion detected on echocardiogram. Dr. Meza performed a bedside pericardiocentesis. Please refer to his procedure note. We continued CPR but unfortunately were never able to get sustainable rhythm or any blood pressure back despite over 45 minutes of ACLS protocols. The patient essentially demonstrated cardiac standstill on echocardiogram despite some electrical activity. At that point in time we elected to discontinue additional resuscitative efforts and the code was called. Please refer to Dr. Weir note summary. Coding CPT Codes Resuscitation - Resuscitation: 70567 Heart/lung resuscitation CPR ([id number]) [facility] [place] Codes (Charges) Resuscitation Resuscitation: 17235 Heart/lung resuscitation CPR
[2023-09-26] MEDS ORDERED: CALCIUM CHLORIDE 10% 10 ML SYR IV ONE (12:20)
[2023-09-26] MEDS ORDERED: ATROPINE SULFATE 0.1 MG/ML 10ML SYR IV ONE (12:20)
[2023-09-26] MEDS ORDERED: SODIUM CHLORIDE 0.9% 10ML FLUSH IV ONE (12:20)
[2023-09-26] MEDS ORDERED: SODIUM CHLORIDE 0.9% 1000 ML BAG IV ONE (12:20)
[2023-09-26] MEDS ORDERED: SODIUM BICARB 8.4% INJ 50 MEQ/50 ML SYR IV ONE (12:20)
[2023-09-26] MEDS ORDERED: AMIODARONE HCL INJ 50 MG/ML 3 ML VIAL IV ONE (12:20)
--- NOTE | 2023-09-26 22:10 | Electrocardiogram Report ---
Test Reason : Blood Pressure : / mmHG Vent. Rate : 069 BPM Atrial Rate : 069 BPM P-R Int : 160 ms QRS Dur : 078 ms QT Int : 402 ms P-R-T Axes : 043 -19 018 degrees QTc Int : 430 ms Normal sinus rhythm Cannot rule out Inferior infarct , age undetermined Abnormal ECG When compared with ECG of 25-SEP-2023 06:05, No significant change was found Confirmed by Bao Gamboa ([id number]) on 09/26/2023 10:09:43 PM Referred By: REFERRED SELF Confirmed By:Bao Gamboa
--- NOTE | 2023-10-02 23:35 | Procedure Note ---
Procedure Note Date of Service September 26, 2023 Note Emergent Pericardiocentesis Presented to bedside after patient had cardiac arrest and Heart Alert was called in the setting of transient ST elevation on monitor post temporary ROSC. At time of presentation on going resuscitative efforts/CPR for PEA arrest. Patient intubated by Dr. Collins. Bedside echo showed questionable pericardial effusion. Decision to proceed with emergent pericardiocentesis for possible tamponade cont ributing to PEA. Sterile prep of Subxiphoid area. 18G needle directed from subxiphoid region towards pericardial space under ultrasound guidance Initially no fluid aspirated and switched to 18G long Chiba needle with access of pericardial space. 6Fr pigtail catheter placed over standard J wire into pericardial space. 45 ml of red/bloody fluid aspirated. Post procedure echo did not clearly show significant residual pericardial effusion. No significant RV collapse noted. Minimal LV function noted. Pericardial drain secured in place as resuscitative efforts ongoing. Summary: 1. Emergent, ultrasound-guided, bedside pericardiocentesis with removal of 45 ml of bloody fluid. Coding
== END 2023-09-26 12:21 | disposition expired ==
LOC: ED 16:05 → SUATTDRO 20:07 → 2S 20:07